=== PATIENT | male | born 1970 | race Caucasian/White ===

== ENCOUNTER 2024-07-16 07:45 | Inpatient (IN) ==
--- NOTE | 2024-07-16 08:08 | Emergency Department Note ---
Impression & Plan NSTEMI (non-ST elevated myocardial infarction), Stented coronary artery ED Provider Note CHIEF COMPLAINT: Chest pain HISTORY OF PRESENT ILLNESS: This 54-year-old male patient with history of coronary artery disease status post stent 2 years ago presents to the emergency department with complaints of substernal chest pressure that began at approximately 630 this morning. He complains of some numbness in the left arm. He denies any recent fever, cough or shortness of breath. He states this happened approximately 5 weeks ago and he did not seek any medical attention, it lasted approximately 30 minutes. He called the ambulance this morning and was given an additional 3 baby aspirin. Patient states he does take aspirin, Plavix and atorvastatin daily. He resides in [place] and that is where his medical care was performed. Patient states he had a 4-hour flight to get to [place] [employer] for the football game. Patient states he was drinking alcohol last evening but denies any energy drinks or stimulants. REVIEW OF SYSTEMS: A review of systems was performed with positives and pertinent negatives listed in the history of present illness. 10 systems were reviewed and are otherwise negative. ALLERGIES: see below MEDICATIONS: see below PMH: see below SOCIAL HISTORY: see below DDx: Acute coronary syndrome, PE, pneumonia, congestive heart failure, cardiac arrhythmia, GERD among others. PHYSICAL EXAM: Vital signs reviewed. General: Well-appearing 54-year-old male, in no significant distress. HEENT: No scleral icterus, PERRLA, neck supple. Moist mucous membranes Cardiovascular: Regular rate and rhythm, no extra sounds. Pulmonary: Clear to auscultation bilaterally, normal work of breathing. Abdomen: Soft, nontender, nondistended, positive bowel sounds. Musculoskeletal: Atraumatic, no peripheral edema. Neurologic: Patient awake alert and oriented x 3, speech is clear Skin: Warm, dry, no rash EMERGENCY DEPARTMENT COURSE/MDM: This patient was evaluated and appeared to be in no significant distress. IV access was obtained and laboratory work was drawn. The patient was placed on the telemetry monitor noted to be in a normal sinus rhythm. EKG reveals no evidence of acute ischemia. The patient did receive aspirin prior to arrival. Patient's initial high-sensitivity troponin was 7.2 with 2 hr repeat trending upward at 31.2. I explained my findings to the patient and recommendations for admission. Consult was placed with [place] [facility] [place]. Patient then stated that he did not want to stay and would like to be discharged. I explained my very strong recommendation that he stay in the hospital given his history of coronary disease with stent and rising troponin. He agreed to a third high-sensitivity troponin, which was 74.7. Patient finally agreed to admission plan IV heparin drip was initiated. He has remained pain-free. Dr. Mena evaluated the patient for admission. MONITORING: An order for cardiac monitoring was placed and the patient is noted to be in a sinus tachycardia at 107 beats per minute. RADIOLOGY: Chest x-ray to my interpretation reveals no evidence of focal lung consolidation or failure EKG: To my interpretation reveals a sinus tachycardia at 104 bpm, normal ST segments. QTc of 431. No PVC, no PAC. DISPOSITION: Admission Past Med/Surg History Problem List (Updated 07/17/24 @ 17:35 by Darline Barraza MD) History of snoring Bradycardia Hypercholesterolemia NSTEMI (non-ST elevated myocardial infarction) (Acute) Stented coronary artery (Acute) Coronary artery disease Social History Smoking Status: Never smoker Hx Alcohol Use: Yes Alcohol type: beer Hx Substance Use: No Preferred Language: Kinyarwanda Communication Ability: Effective Disaster Director Required: No Beliefs That Will Affect Care: None Current Living Situation: Spouse Feels Safe at Home: Yes Safety Concerns: Feels Safe At This Time Allergies Allergies Allergy/AdvReac Type Severity Reaction Status Date / Time No Known Allergies Allergy Unverified 07/16/24 07:58 Home Meds Home Medications Medication Instructions Recorded Confirmed aspirin 81 mg chewable tablet 81 mg PO DAILY 07/16/24 07/16/24 atorvastatin 10 mg tablet (Lipitor) 10 mg PO DAILY 07/16/24 07/16/24 clopidogrel 75 mg tablet (Plavix) 75 mg PO DAILY 07/16/24 07/16/24 Results & Data (ED) Vital Signs Vital Signs - 24 hr 07/16/24 07:49 07/16/24 07:49 07/16/24 08:03 Temperature 36.7 C Temperature Source Oral Pulse Rate 103 H 107 H 106 H Pulse Rate from SpO2 Sensor 106 H Pulse Rhythm Regular Regular Pulse Strength Normal Respiratory Rate 16 16 16 Respiratory Effort / Characteristics Non-Labored Spontaneous Respiratory Depth Normal Respiratory Pattern Regular Blood Pressure 153/96 H 150/84 H Blood Pressure Mean 115 106 Blood Pressure Position Sitting Pulse Oximetry 98 98 98 Oxygen Delivery Method Room Air Room Air Room Air Sepsis Recent Fever Within 48 Hours Yes Sepsis New/Unexplained Change in Mental Status N/A Sepsis Action Taken by Nursing No Action Required 07/16/24 08:13 07/16/24 08:16 07/16/24 08:33 Temperature Temperature Source Pulse Rate 110 H 100 H 88 Pulse Rate from SpO2 Sensor Pulse Rhythm Regular Pulse Strength Respiratory Rate 16 14 Respiratory Effort / Characteristics Respiratory Depth Respiratory Pattern Blood Pressure 144/81 H Blood Pressure Mean 102 Blood Pressure Position Pulse Oximetry 98 98 Oxygen Delivery Method Room Air Room Air Sepsis Recent Fever Within 48 Hours Sepsis New/Unexplained Change in Mental Status Sepsis Action Taken by Nursing 07/16/24 09:03 07/16/24 09:30 07/16/24 10:06 Temperature Temperature Source Pulse Rate 96 H 90 89 Pulse Rate from SpO2 Sensor Pulse Rhythm Pulse Strength Respiratory Rate 18 16 14 Respiratory Effort / Characteristics Respiratory Depth Respiratory Pattern Blood Pressure 164/80 H 142/76 H 121/83 Blood Pressure Mean 108 98 95 Blood Pressure Position Pulse Oximetry 99 98 99 Oxygen Delivery Method Room Air Room Air Room Air Sepsis Recent Fever Within 48 Hours Sepsis New/Unexplained Change in Mental Status Sepsis Action Taken by Skilled Nursing Medications Current Medication List: was personally reviewed by me Laboratory Data Attestation: I reviewed the patient's lab results. 07/17/24 03:21 07/17/24 03:21 Lab Results 07/16/24 07/16/24 07/16/24 Range/Units 08:09 10:13 12:13 WBC 5.33 (4.8-10.8) K/ul RBC 4.88 (4.70-6.10) M/uL Hgb 14.7 (14.0-18.0) g/dl Hct 41.8 L (42.0-52.0) % MCV 85.7 (80.0-100.0) fL MCH 30.1 (25.0-34.0) pg MCHC 35.2 (32.0-36.0) g/dL RDW Std Deviation 39.4 (36.4-46.3) fL RDW Coeff of Júnior 12.6 (11.5-14.5) % Plt Count 222 (130-400) K/uL MPV 11.1 (9.4-12.4) fL Immature Gran % (Auto) 0.4 % Neut % (Auto) 63.8 % Lymph % (Auto) 23.8 % [place] % (Auto) 9.2 % Eos % (Auto) 2.4 % Baso % (Auto) 0.4 % Neut # (Auto) 3.40 (1.40-6.50) K/uL Lymph # (Auto) 1.27 (1.20-3.40) K/uL [place] # (Auto) 0.49 (0.11-0.59) K/uL Eos # (Auto) 0.13 (0.00-0.50) K/uL Baso # (Auto) 0.02 (0.00-0.20) K/uL Immature Gran # (Auto) 0.02 (0.01-0.20) K/uL PT 9.6 (9.0-12.0) Seconds INR 0.9 (0.9-1.1) APTT 25 (21-31) Seconds PTT Ratio 0.9 D-Dimer 410 (0-500) ug/L FEU Sodium 140 (136-145) mmol/L Potassium 4.3 (3.5-5.1) mmol/L Chloride 109 H (98-107) mmol/L Carbon Dioxide 25 (21-32) mmol/L Anion Gap 6 (3-11) BUN 18 (6-23) mg/dl Creatinine 0.78 (0.6-1.4) mg/dl Est Cr Clr Drug Dosing 128.1 ml/min eGFR 107.30 BUN/Creatinine Ratio 23.1 H (10-20) Glucose 114 H (70-99(Fasting)) mg/dl Calcium 9.5 (8.6-10.3) mg/dl Magnesium 2.1 (1.7-2.4) mg/dl Total Bilirubin 0.3 (0.2-1.0) mg/dl AST 30 (13-39) U/L ALT 39 (7-52) U/L Alkaline Phosphatase 65 (34-104) U/L Troponin I High Sens 7.2 31.2 H D 74.7 H* D (0-20) pg/ml Total Protein 7.4 (6.0-8.3) gm/dl Albumin 4.5 (3.4-5.0) gm/dl Globulin 2.9 (2.5-4.0) gm/dl Albumin/Globulin Ratio 1.6 (0.9-2) Lipase 79 (11-82) U/L Administered Medications Aspirin (Aspirin 81 Mg Ectab) 81 mg PO QAM [facility] Stop: 08/16/24 08:59 Last Admin: 07/17/24 08:40 Dose: 81 mg Documented By: MANFRED Atorvastatin Calcium (Atorvastatin 40 Mg Tab) 40 mg PO QAM [facility] Stop: 08/16/24 08:59 Last Admin: 07/17/24 08:41 Dose: 40 mg Documented By: MANFRED Clopidogrel Bisulfate (Clopidogrel Bisulfate 75 Mg Tab) 75 mg PO DAILY [facility] Stop: 08/16/24 08:59 Last Admin: 07/17/24 08:41 Dose: 75 mg Documented By: MANFRED Heparin Sodium/Dextrose (Heparin Sodium/Dextrose) 25,000 units in 500 mls @ 22 mls/hr IV .[id number] [facility]; Protocol Stop: 08/15/24 13:44 Last Admin: 07/17/24 10:11 Dose: 1,100 units/hr, 22 mls/hr Documented By: MANFRED Co-signed By: CHRISTIANO Titration: 07/17/24 10:11 Dose: Infused Documented By: MANFRED Co-signed By: CHRISTIANO Titration: 07/17/24 04:13 Dose: 1,100 units/hr, 22 mls/hr Documented By: RODOLFO Co-signed By: DAYSI Titration: 07/16/24 20:49 Dose: 1,100 units/hr, 22 mls/hr Documented By: RODOLFO Co-signed By: DAYSI Titration: 07/16/24 19:05 Dose: 1,000 units/hr, 20 mls/hr Documented By: MANFRED Co-signed By: RODOLFO Admin: 07/16/24 13:33 Dose: 1,000 units/hr, 20 mls/hr Documented By: Co-signed By: MARLENE Metoprolol Tartrate (Metoprolol Tartrate 25 Mg Tab) 25 mg PO BID [facility] Stop: 08/15/24 20:59 Last Admin: 07/17/24 12:27 Dose: Not Given Documented By: Admin: 07/17/24 08:03 Dose: Not Given Documented By: Admin: 07/16/24 21:18 Dose: 25 mg Documented By: RODOLFO Discontinued Medications Aspirin (Aspirin Chew 324 Mg) 324 mg PO NOW STA Stop: 07/16/24 07:51 Last Admin: 07/16/24 08:15 Dose: Not Given Documented By: WOODY Heparin Sodium (Porcine) (Heparin Sod (Porcine) 1000 Unit/Ml) 4,000 units IV NOW ONE Stop: 07/16/24 13:31 Last Admin: 07/16/24 13:26 Dose: 4,000 units Documented By: Co-signed By: MARLENE Imaging Data Radiologist's Impression: Chest X-Ray 07/16/24 07:50 XR chest 1V portable HISTORY: 54 years-old Male Chest pain, nonspecific COMPARISON: None TECHNIQUE: AP view of the chest FINDINGS: Heart size is normal. No pneumothorax, pleural effusion or airspace consolidation. Bones appear grossly intact. IMPRESSION: No acute process. ACT 112: Negative or not required by law. The above report was generated using voice recognition software. It may contain grammatical, syntax or spelling errors. Electronically signed by: Cornell Rick M.D. 07/16/2024 8:42 AM Discharge Plan Visit Data Chief Complaint: Chest Pain Stated Complaint: Chest Pain ED Provider: Darline Barraza Discharge Problem: NSTEMI (non-ST elevated myocardial infarction), Stented coronary artery Patient Disposition: Admitted As Inpatient Discharge Instructions Interventions: ED Discharge Assessment Last Done: 07/16/24 13:49
[2024-07-16] MEDS: ASPIRIN CHEW 324 MG PO STA (08:15)
[2024-07-16 08:35] LABS: Basophils # (auto) 0.02 K/uL (0.00-0.20); Basophils % (auto) 0.4 %; Eosinophils # (auto) 0.13 K/uL (0.00-0.50); Eosinophils % (auto) 2.4 %; Hematocrit (blood only) 41.8 % (42.0-52.0); Hemoglobin 14.7 g/dl (14.0-18.0); Immature Granulocytes # (auto) 0.02 K/uL (0.01-0.20); Immature Granulocytes % (auto) 0.4 %; Lymphocytes # (auto) 1.27 K/uL (1.20-3.40); Lymphocytes % (auto) 23.8 %; Mean Corpuscular Hemoglobin 30.1 pg (25.0-34.0); Mean Corpuscular Hgb Conc 35.2 g/dL (32.0-36.0); Mean Corpuscular Volume 85.7 fL (80.0-100.0); Mean Platelet Volume 11.1 fL (9.4-12.4); Monocytes # (auto) 0.49 K/uL (0.11-0.59); Monocytes % (auto) 9.2 %; Neutrophils % (auto) 63.8 %; Platelet Count 222 K/uL (130-400); RDW Coefficient of Variation 12.6 % (11.5-14.5); RDW Standard Deviation 39.4 fL (36.4-46.3); Red Blood Count 4.88 M/uL (4.70-6.10); White Blood Count 5.33 K/ul (4.8-10.8)
[2024-07-16 08:40] LABS: Albumin Globulin Ratio 1.6 (0.9-2); Albumin Level 4.5 gm/dl (3.4-5.0); BUN Creatinine Ratio 23.1 (10-20); Bilirubin,Total 0.3 mg/dl (0.2-1.0); Calcium 9.5 mg/dl (8.6-10.3); Creatinine Clr Calc Pharmacy 128.1 ml/min; Globulin 2.9 gm/dl (2.5-4.0); Potassium 4.3 mmol/L (3.5-5.1); Total Protein 7.4 gm/dl (6.0-8.3)
--- NOTE | 2024-07-16 08:44 | XRay Report ---
XR chest 1V portable HISTORY: 54 years-old Male Chest pain, nonspecific COMPARISON: None TECHNIQUE: AP view of the chest FINDINGS: Heart size is normal. No pneumothorax, pleural effusion or airspace consolidation. Bones appear gross ly intact. IMPRESSION: No acute process. ACT 112: Negative or not required by law. The above report was generated using voice recognition software. It may contain grammatical, syntax o r spelling errors. Electronically signed by: Cornell Rick M.D. 07/16/2024 8:42 AM
[2024-07-16 08:46] LABS: Troponin I High Sensitivity 7.2 pg/ml (0-20)
[2024-07-16 08:49] LABS: D Dimer 410 ug/L FEU (0-500)
[2024-07-16 12:56] LABS: Troponin I High Sensitivity 74.7 pg/ml (0-20)
[2024-07-16] MEDS ORDERED: Heparin IV Adult Wt-Based Low-Dose w/ INITIAL Bolus Protocol IV STA (12:58)
[2024-07-16 12:59] LABS: INR 0.9 (0.9-1.1); Partial Thromboplastin Ratio 0.9; Partial Thromboplastin Time 25 Seconds (21-31); Prothrombin Time 9.6 Seconds (9.0-12.0)
--- NOTE | 2024-07-16 13:01 | History & Physical Report ---
Date of Service July 16, 2024 Assessment & Plan (1) NSTEMI (non-ST elevated myocardial infarction): Plan: Chest pain started the morning of arrival around 0630; 2 previous episodes occurred before with previous and most recent episode lasting 15-20 minutes in duration. Initial episodes occurred after exercise, most recent episode occurred during sleep and caused him to wake. No radiation of pressure, but did have RUE numbness/tingling. Currently chest pain/pressure free. On ASA, plavix, and atorvastatin. - Admit PCU - EKG sinus tachycardia (104 bpm) - Troponin 7.2-> 31.2-> 74.7 - CBC WNL; CMP chloride 109, BUN 23.1; D-dimer 410; PT/INR 9.6/0.9, aPTT 25, PTT ratio 0.9; Lipids pending, A1c pending, Mg pending - Echo: Essentially normal study; EF 55-60%; mild MR, trace TR - ASA chew 325 mg given; continue dose of ASA 81mg po daily - SL NTG 0.4mg prn chest pain - Heparin started in ED; continue - On atorvastatin 10 mg daily; increase to 40mg daily for high intensity statin - Start Metoprolol tartrate 25 mg BID - Continue Plavix 75mg daily - IVETH risk score 2 - Cardiology consulted; consider catheterization - NPO at midnight; heart healthy otherwise Appreciate cardiology input/recs (2) Coronary artery disease: Plan: H/o, per patient - Notes he had stents placed and follows at a hospital in [place] with credit union examiner - On Plavix, ASA, and atorvastatin as outpatient Plan Dispo: Admit VTE prophylaxis: Heparin for #1 Code: Full Admission and Anticipated Discharge Date Admission Date: 07/16/2024 History of Present Illness Chief Complaint: Chest pain Primary Care Provider: NO PCP Patient is a 54-year-old male presenting to ED via EMS after having an onset of chest discomfort/pressure this a.m. around 0630. Upon EMS arrival, patient noted to be tachycardic and hypertensive; ovided with 3 aspirin.ED course: CBC WNL with exception of hematocrit 41.8%; D-dimer 410; CMP chloride 109, BUN 23.1, glucose 114; initial troponin 7.2 with repeat 31.2, pending 3rd of series; CXR- no acute process; EKG without ischemic changes. Provided with aspirin 324 mg in ED. Patient is a 54-year-old male with PMHx CAD, who underwent cardiac cathet erization approximate 3 months ago at a hospital in [place], now presenting for chest pressure. Patient states that the chest pressure started at approximately 0630 the day of arrival, awaking him from his sleep. Noted that the pressure was substernal, without radiation. He did have numbness/tingling down his left arm. Reports mild shortness of breath as well, but no coughing, or syncopal events. Overall feels his body is weak at the time of the episode. Reports episode lasted approximately 20 minutes and with complete resolution . States that this has happened on 2 other occasions within the past 3 months. These occurred minutes after completing a workout. It was a sudden onset substernal discomfort, resulting in mild shortness of breath and lasting 15 to 20 minutes per episode. After the first episode, he did follow-up with a credit union examiner and a cardiac catheterization was completed; patient is trying to locate these records. Patient resides in [place]; did fly into [place] to visit his son. Denies calf pain/tenderness or swelling. Additionally denies recent fever/chills, palpitations, abdominal pain, N/V/D/C, or recent illness. Currently on aspirin, Plavix, and atorvastatin. Takes OTC multivitamins. Denies illicit drug use, but did have alcohol last evening. Please see Dr. Mena's attestation for adjustments/additions to treatment plan. Allergies Allergy/AdvReac Type Severity Reaction Status Date / Time No Known Allergies Allergy Unverified 07/16/24 07:58 Home Medications Medication Instructions Recorded Confirmed Type aspirin 81 mg chewable tablet 81 mg PO DAILY 07/16/24 07/16/24 History atorvastatin 10 mg tablet (Lipitor) 10 mg PO DAILY 07/16/24 07/16/24 History clopidogrel 75 mg tablet (Plavix) 75 mg PO DAILY 07/16/24 07/16/24 History Past Med/Surg History Problem List (Updated 07/16/24 @ 13:06 by Tamara Polanco PA-C) NSTEMI (non-ST elevated myocardial infarction) Stented coronary artery Coronary artery disease Social History Smoking Status: Never smoker Hx Alcohol Use: Yes Alcohol type: beer Hx Substance Use: No Preferred Language: Congolese Communication Ability: Effective Accounting Administrator Required: No Beliefs That Will Affect Care: None Current Living Situation: Spouse Feels Safe at Home: Yes Safety Concerns: Feels Safe At This Time Review of Systems Review of Systems: All systems reviewed & are unremarkable except as noted in Subjective Physical Exam Physical Exam: General: No acute distress, well developed. Skin: Warm and dry, without rashes or lesions. No cyanosis or clubbing Head: Normocephalic, atraumatic Eyes: PERRL, conjunctivae clear, sclera non-icteric ENT: External ear and ear canal without swelling; nose atraumatic; good dentition Neck: Supple, no LAD; no JVD Cardio: RRR, no M/G/R, S1 and S2 normal Resp: Chest wall symmetric, normal respiratory effort; No respiratory distress, Lungs CTA in all lobes bilaterally, no wheezes, rales, or rhonchi Abdomen: Soft, symmetric, nontender; no distention; No masses or hepatosplenomegaly MSK: No deformities, full ROM throughout; sensation normal to UE/LE; pulses palpable and equal; no edema; no calf tenderness bilaterally Neuro: Awake, alert; Muscle strength 5/5 bilaterally in UE/LE; Sensation intact bilaterally; CN intact Psych: Appropriate mood and affect; good judgement and insight. Results & Data Results & Data Vital Signs (Past 12 Hours) Vital Signs Temp Pulse Resp BP Pulse Ox O2 Del Method 07/16/24 11:49 90 07/16/24 10:06 89 14 121/83 99 Room Air 07/16/24 09:30 90 16 142/76 H 98 Room Air 07/16/24 09:03 96 H 18 164/80 H 99 Room Air 07/16/24 08:33 88 14 144/81 H 98 Room Air 07/16/24 08:16 100 H 16 98 Room Air 07/16/24 08:13 110 H 07/16/24 08:03 106 H 16 150/84 H 98 Room Air 07/16/24 07:49 107 H 16 98 Room Air 07/16/24 07:49 36.7 C 103 H 16 153/96 H 98 Room Air Laboratory Results 07/16/24 07/16/24 07/16/24 12:13 10:13 08:09 WBC 5.33 RBC 4.88 Hgb 14.7 Hct 41.8 L MCV 85.7 MCH 30.1 MCHC 35.2 RDW Std Deviation 39.4 RDW Coeff of Júnior 12.6 Plt Count 222 MPV 11.1 Immature Gran % (Auto) 0.4 Neut % (Auto) 63.8 Lymph % (Auto) 23.8 [place] % (Auto) 9.2 Eos % (Auto) 2.4 Baso % (Auto) 0.4 Neut # (Auto) 3.40 Lymph # (Auto) 1.27 [place] # (Auto) 0.49 Eos # (Auto) 0.13 Baso # (Auto) 0.02 Immature Gran # (Auto) 0.02 D-Dimer 410 Sodium 140 Potassium 4.3 Chloride 109 H Carbon Dioxide 25 Anion Gap 6 BUN 18 Creatinine 0.78 Est Cr Clr Drug Dosing 128.1 eGFR 107.30 BUN/Creatinine Ratio 23.1 H Glucose 114 H Calcium 9.5 Total Bilirubin 0.3 AST 30 ALT 39 Alkaline Phosphatase 65 Troponin I High Sens 74.7 H* D 31.2 H D 7.2 Total Protein 7.4 Albumin 4.5 Globulin 2.9 Albumin/Globulin Ratio 1.6 Lipase 79 Diagnostic Findings Chest X-Ray 07/16/24 07:50 XR chest 1V portable HISTORY: 54 years-old Male Chest pain, nonspecific COMPARISON: None TECHNIQUE: AP view of the chest FINDINGS: Heart size is normal. No pneumothorax, pleural effusion or airspace consolidation. Bones appear grossly intact. IMPRESSION: No acute process. ACT 112: Negative or not required by law. The above report was generated using voice recognition software. It may contain grammatical, syntax or spelling errors. Electronically signed by: Cornell Rick M.D. 07/16/2024 8:42 AM ECG Additional Comments: Sinus tachycardia at 104 bpm UT 180, QRS 76, QT/QTc 328/431 Code Status & VTE Plan Code Status Full Supervising Physician Co-Signing Physician Notes I personally saw and examined the patient. I independently reviewed the labs, EKG, imaging, problem list, medication list, past medical history and family history. I verified all ambriz points and agree with Tamara Polanco PA-C with the following exceptions and/or additions: 54 year old male presents to the ER with chest pain. Currently chest pain free when seen in the ER. Known coronary artery disease with prior cardiac stents. Reportedly had cardiac catheterization just 4 months ago although unable to get results of this currently. O/E HS RRR, no murmurs, Chest CTAB, Abdo SNT A/P NSTEMI - aspirin, clopidogrel, metoprolol, atorvastatin, IV heparin, TTE, consult cardiology for consideration of cardiac catheterization PG Care Time/CCT Total # of Minutes Spent Total Time Spent with Patient: Total time spent is greater than 50% in coordination of care (as documented) at patient's floor/unit and/or counseling patient: Coding Level of Care Code 31168 INT INP/OBS CARE 2/55MIN Diagnoses NSTEMI (non-ST elevated myocardial infarction) I21.4 Coronary artery disease I25.10 Time Spent (min) 65
[2024-07-16] MEDS ORDERED: HEPARIN SOD (PORCINE) 1000 UNIT/ML IV ONE (13:14)
[2024-07-16] MEDS ORDERED: Heparin IV Adult Wt-Based Low-Dose w/ INITIAL Bolus Protocol IV SCH (13:15)
[2024-07-16] MEDS ORDERED: HEPARIN SODIUM/DEXTROSE 25,000 UNITS/500 ML BAG IV SCH (13:15)
--- NOTE | 2024-07-16 13:17 | XCELERA ---
[id number] \\[id number]
[2024-07-16] MEDS: HEPARIN SOD (PORCINE) 1000 UNIT/ML IV ONE (13:26)
[2024-07-16] MEDS: HEPARIN SODIUM/DEXTROSE 25,000 UNITS/500 ML BAG IV SCH (13:33)
[2024-07-16 13:47] LABS: Magnesium 2.1 mg/dl (1.7-2.4)
[2024-07-16] MEDS ORDERED: NITROGLYCERIN SL 0.4 MG/TAB TAB SL PRN (14:03)
--- NOTE | 2024-07-16 15:48 | Cardiology Consultation ---
Date of Consultation July 16, 2024 Assessment & Plan (1) NSTEMI (non-ST elevated myocardial infarction): (2) Stented coronary artery: (3) Coronary artery disease: (4) Hypercholesterolemia: Plan Will make arrangements for left heart catheterization on Thursday. Depending on the results of the cath further recommendations will follow. He also told me that his recent labs from home included an LDL cholesterol that was in the 80s. Given our new guidelines show an LDL cholesterol less than 50-60 for prevention of new disease I have recommended that we increase his dose of rosuvastatin to 20 mg. He will continue taking aspirin at this time. He tells me that he was on Plavix for about a year after his stent but that was discontinued. He has been faithfully taking aspirin. Thank you for allowing me to participate in the care of this patient. I look forward to participating in his care with you. History of Present Illness Reason for Consultation: Non-ST elevation [place] Attending Physician: Hill Mena MD History of Present Illness Mr. Denton is a very nice 54-year-old gentleman who is here in town from [place] where he flew into town yesterday to visit his son and was here for the football game. Unfortunately he started having significant chest discomfort and presented to the emergency room. He does have a history of prior coronary artery disease which was done in [place] approximately 2 years ago. I do not have any of his old records but he did have a picture on his phone of his prior cath and stent and it appears to be in the proximal LAD. His symptoms are similar to the prior ones that he noted. His cardiac enzymes are abnormal. EKG shows sinus tachycardia with nonspecific T wave flattening in the inferior leads. Because of his young age as well as the extended travel that he will require to get back home, I recommended that we do a left heart catheterization on him on Thursday to define his coronary anatomy. He is agreeable and I will make arrangements to have the cath done on Thursday with Dr. Robledo. Allergies Allergy/AdvReac Type Severity Reaction Status Date / Time No Known Allergies Allergy Unverified 07/16/24 07:58 Home Medications Medication Instructions Recorded Confirmed Type aspirin 81 mg chewable tablet 81 mg PO DAILY 07/16/24 07/16/24 History atorvastatin 10 mg tablet (Lipitor) 10 mg PO DAILY 07/16/24 07/16/24 History clopidogrel 75 mg tablet (Plavix) 75 mg PO DAILY 07/16/24 07/16/24 History Patient History Social History Smoking Status: Never smoker Hx Alcohol Use: Yes Alcohol type: beer Hx Substance Use: No Preferred Language: Maltese Communication Ability: Effective Tire Adjuster Required: No Beliefs That Will Affect Care: None Current Living Situation: Spouse Feels Safe at Home: Yes Safety Concerns: Feels Safe At This Time Review of Systems Review of Systems: All systems reviewed & are unremarkable except as noted in HPI & below Physical Exam Physical Exam: awake alert and oriented in no apparent distress he appears comfortable at this time Respiratory: Lungs are clear to auscultation bilaterally Cardiovascular: Heart is regular there are no murmurs rubs appreciated there is no edema Results & Data Vital Signs (Past 12 Hours) Vital Signs Temp Pulse Pulse Resp BP BP Pulse Ox 07/16/24 15:05 99 H 07/16/24 14:18 36.5 C 87 16 137/93 97 07/16/24 13:36 84 14 139/94 97 07/16/24 13:00 81 14 165/92 H 94 07/16/24 11:49 90 07/16/24 11:03 90 12 147/98 H 07/16/24 10:06 89 14 121/83 99 07/16/24 09:30 90 16 142/76 H 98 07/16/24 09:03 96 H 18 164/80 H 99 07/16/24 08:33 88 14 144/81 H 98 07/16/24 08:16 100 H 16 98 07/16/24 08:13 110 H 07/16/24 08:03 106 H 16 150/84 H 98 07/16/24 07:49 107 H 16 98 07/16/24 07:49 36.7 C 103 H 16 153/96 H 98 O2 Del Method 07/16/24 15:05 07/16/24 14:18 Room Air 07/16/24 13:36 07/16/24 13:00 07/16/24 11:49 07/16/24 11:03 07/16/24 10:06 Room Air 07/16/24 09:30 Room Air 07/16/24 09:03 Room Air 07/16/24 08:33 Room Air 07/16/24 08:16 Room Air 07/16/24 08:13 07/16/24 08:03 Room Air 07/16/24 07:49 Room Air 07/16/24 07:49 Room Air Laboratory Results Abnormal lab results 07/16/24 07/16/24 07/16/24 Range/Units 08:09 10:13 12:13 Hct 41.8 L (42.0-52.0) % Chloride 109 H (98-107) mmol/L BUN/Creatinine Ratio 23.1 H (10-20) Glucose 114 H (70-99(Fasting)) mg/dl Troponin I High Sens 31.2 H D 74.7 H* D (0-20) pg/ml 07/16/24 Range/Units 14:32 Hct (42.0-52.0) % Chloride (98-107) mmol/L BUN/Creatinine Ratio (10-20) Glucose (70-99(Fasting)) mg/dl Troponin I High Sens 105.5 H* D (0-20) pg/ml ECG Additional Comments: Sinus tachycardia nonspecific T wave changes in the inferior leads
--- NOTE | 2024-07-16 19:32 | Electrocardiogram Report ---
Test Reason : Blood Pressure : */* mmHG Vent. Rate : 104 BPM Atrial Rate : 104 BPM P-R Int : 180 ms QRS Dur : 76 ms QT Int : 328 ms P-R-T Axes : 54 10 1 degrees QTcB Int : 431 ms Sinus tachycardia Otherwise normal ECG No previous ECGs available Confirmed by Radha Bustillos (Vielka) on 07/16/2024 7:31:28 PM Referred By: REFERRED SELF Confirmed By: Radha Bustillos
[2024-07-16 20:29] LABS: ANTI-Xa, UFH(UnfractionatedHep 0.29 IU/ml (0.3-0.7)
[2024-07-16] MEDS: METOPROLOL TARTRATE 25 MG TAB PO SCH (21:18)
[2024-07-17 03:41] LABS: Hematocrit (blood only) 40.9 % (42.0-52.0); Hemoglobin 14.1 g/dl (14.0-18.0); Mean Corpuscular Hemoglobin 29.9 pg (25.0-34.0); Mean Corpuscular Hgb Conc 34.5 g/dL (32.0-36.0); Mean Corpuscular Volume 86.8 fL (80.0-100.0); Mean Platelet Volume 10.6 fL (9.4-12.4); Platelet Count 197 K/uL (130-400); RDW Coefficient of Variation 12.5 % (11.5-14.5); RDW Standard Deviation 39.8 fL (36.4-46.3); Red Blood Count 4.71 M/uL (4.70-6.10); White Blood Count 5.33 K/ul (4.8-10.8)
[2024-07-17 03:58] LABS: BUN Creatinine Ratio 18.7 (10-20); Calcium 9.3 mg/dl (8.6-10.3); Chol HDL Ratio 3.5 (0-5); Creatinine Clr Calc Pharmacy 109.8 ml/min; Potassium 4.3 mmol/L (3.5-5.1)
[2024-07-17 04:15] LABS: Troponin I High Sensitivity 57.3 pg/ml (0-20)
[2024-07-17 07:19] LABS: Estimated Average Glucose 105 mg/dl; Hemoglobin A1C 5.3 % (4.5-5.6)
[2024-07-17] MEDS: ASPIRIN 81 MG ECTAB PO SCH (08:40)
[2024-07-17] MEDS: CLOPIDOGREL BISULFATE 75 MG TAB PO SCH (08:41)
[2024-07-17] MEDS: ATORVASTATIN 40 MG TAB PO SCH (08:41)
[2024-07-17] MEDS ORDERED: ASPIRIN 81 MG CHEW PO SCH (09:00)
--- NOTE | 2024-07-17 12:54 | Cardiology Progress Note ---
Date of Service July 17, 2024 Assessment & Plan (1) NSTEMI (non-ST elevated myocardial infarction): (2) Stented coronary artery: (3) Coronary artery disease: (4) Hypercholesterolemia: (5) Bradycardia: (6) History of snoring: Plan Will make arrangements for left heart catheterization on Thursday with Dr. Robledo. Depending on the results of the cath further recommendations will follow. He also told me that his recent labs from home included an LDL cholesterol that was in the 80s. Given our new guidelines show an LDL cholesterol less than 50-60 for prevention of new disease I have recommended that we increase his dose of rosuvastatin to 20 mg. He will continue taking aspirin at this time as well as Plavix and is currently on IV heparin. He tells me that he was on Plavix for about a year after his stent but that was discontinued. He has been faithfully taking aspirin. I put his beta-buster on hold given the relative bradycardia and given that he has not had any additional chest pain. I am going to see if respiratory can do a continuous pulse ox which will record his saturations to see if we can put together oxygen saturations with when he gets bradycardic. When he gets back home to [place] he will likely need an at home sleep study to further evaluate this. He is very nervous and anxious to be able to get back home. He has a flight Thursday p.m. hopefully if we can get his catheterization done early enough tomorrow we will not have to interrupt his travel plans. Thank you for allowing me to participate in the care of this patient. I look forward to participating in his care with you. Admission and Anticipated Discharge Date Admission Date: July 16, 2024 Subjective Mr. Lee was seen today in cardiovascular follow-up. He has had no additional chest pain through the night. His cardiac enzymes are coming back to normal. Last evening on telemetry his heart rate dropped down into the 20s and 30s. I question him regarding sleep apnea and he is noted to be a snorer. We did not have correlation with pulse ox at the same time as his heart rate dropped down. He was able to pull up on his computer his most recent CTA which was done in [place] approximately 1 year ago. His coronary anatomy appears okay to my eye however it is difficult to see within his LAD stent to see if it is patent. His prior catheterization was from 2021 which showed a proximal to mid LAD stent. On his EKG is difficult to isolate an area of ischemia or infarct. His echo shows overall normal LV systolic function without wall motion abnormalities. Review of Systems Review of Systems: All systems reviewed & are unremarkable except as noted in HPI & below Physical Exam Physical Exam: awake alert and oriented in no apparent distress he appears comfortable at this time Respiratory: Clear to auscultation bilaterally Cardiovascular: Heart regular no new murmurs noted Results & Data Vital Signs (Past 12 Hours) Vital Signs Temp Pulse Pulse Resp BP Pulse Ox O2 Del Method 07/17/24 10:48 37 C 84 18 139/91 96 Room Air 07/17/24 07:48 36.7 C 74 18 115/72 94 Room Air 07/17/24 07:15 60 07/17/24 02:58 37.2 C 61 17 115/72 96 Room Air Laboratory Results Abnormal lab results 07/16/24 07/16/24 07/17/24 Range/Units 14:32 19:50 03:21 Hct 40.9 L (42.0-52.0) % Heparin Anti-Xa, Unfract 0.29 L (0.3-0.7) IU/ml Glucose 108 H (70-99(Fasting)) mg/dl Troponin I High Sens 105.5 H* D 100.7 H* 57.3 H* D (0-20) pg/ml Cholesterol 214 H (0-200) mg/dl Medications Administered Current Inpatient Medications Aspirin (Aspirin 81 Mg Ectab) 81 mg PO [facility] Stop: 08/16/24 08:59 Last Admin: 07/17/24 08:40 Dose: 81 mg Atorvastatin Calcium (Atorvastatin 40 Mg Tab) 40 mg PO QAM [facility] Stop: 08/16/24 08:59 Last Admin: 07/17/24 08:41 Dose: 40 mg Clopidogrel Bisulfate (Clopidogrel Bisulfate 75 Mg Tab) 75 mg PO DAILY [facility] Stop: 08/16/24 08:59 Last Admin: 07/17/24 08:41 Dose: 75 mg Heparin Sodium/Dextrose (Heparin Sodium/Dextrose) 25,000 units in 500 mls @ 22 mls/hr IV .[id number] [facility]; Protocol Stop: 08/15/24 13:44 Last Admin: 07/17/24 10:11 Dose: 1,100 units/hr, 22 mls/hr Metoprolol Tartrate (Metoprolol Tartrate 25 Mg Tab) 25 mg PO BID [facility] Stop: 08/15/24 20:59 Last Admin: 07/17/24 12:27 Dose: Not Given Nitroglycerin (Nitroglycerin Sl 0.4 Mg/Tab Tab) 0.4 mg SL Q5M PRN PRN Reason: Chest Pain ECG Additional Comments: Repeat EKG from this morning shows normal sinus rhythm at 74 there are T wave inversions in the inferior leads.
--- NOTE | 2024-07-17 14:44 | Hospitalist Progress Note ---
Date of Service July 17, 2024 Assessment & Plan (1) NSTEMI (non-ST elevated myocardial infarction): Plan: Chest pain started the morning of arrival around 0630; 2 previous episodes occurred before with previous and most recent episode lasting 15-20 minutes in duration. Initial episodes occurred after exercise, most recent episode occurred during sleep and caused him to wake. No radiation of pressure, but did have RUE numbness/tingling. Currently chest pain/pressure free. On ASA, plavix, and atorvastatin. - Admit PCU - EKG sinus tachycardia (104 bpm) - Troponin leaked at 105 - CBC WNL; CMP chloride 109, BUN 23.1; D-dimer 410; PT/INR 9.6/0.9, aPTT 25, PTT ratio 0.9; Lipids pending, A1c pending, Mg pending - Echo: Essentially normal study; EF 55-60%; mild MR, trace TR -Countinue DAPT -continue metoprolol 25 mg PO BID. -continue high intensity statin - Cardiology consulted; consider catheterization - NPO at midnight; heart healthy otherwise Appreciate cardiology input/recs (2) Coronary artery disease: Plan: H/o, per patient - Notes he had stents placed and follows at a hospital in [place] with general adjuster - On Plavix, ASA, and atorvastatin as outpatient Plan Dispo: Admit VTE prophylaxis: Heparin for #1 Code: Full Admission and Anticipated Discharge Date Admission Date: July 16, 2024 Subjective Patient reports feeling well. Review of Systems Review of Systems: All systems reviewed & are unremarkable except as noted in HPI & below Physical Exam Physical Exam: General: Patient sitting upright using his computer. Chest: not using accessory muscles to breath Lung: CTA b/l Heart: RRR, NL S1, S2 Abd: soft, NT, ND Results & Data Results & Data Vital Signs (Past 12 Hours) Vital Signs Temp Pulse Pulse Resp BP Pulse Ox O2 Del Method 07/17/24 13:35 83 07/17/24 10:48 37 C 84 18 139/91 96 Room Air 07/17/24 07:48 36.7 C 74 18 115/72 94 Room Air 07/17/24 07:15 60 07/17/24 02:58 37.2 C 61 17 115/72 96 Room Air PG Care Time/CCT Total # of Minutes Spent Total Time Spent with Patient: Total time spent is greater than 50% in coordination of care (as documented) at patient's floor/unit and/or counseling patient: Coding Level of Care Code 56922 SUB INP/OBS CARE 235MIN Diagnoses NSTEMI (non-ST elevated myocardial infarction) I21.4 Coronary artery disease I25.10
--- NOTE | 2024-07-17 17:39 | Electrocardiogram Report ---
Test Reason : Blood Pressure : */* mmHG Vent. Rate : 74 BPM Atrial Rate : 74 BPM P-R Int : 158 ms QRS Dur : 76 ms QT Int : 372 ms P-R-T Axes : 23 5 6 degrees QTcB Int : 412 ms Normal sinus rhythm Normal ECG When compared with ECG of 16-Jul-2024 07:49, No significant change was found Confirmed by Radha Bustillos (Vielka) on 07/17/2024 5:38:57 PM Referred By: REFERRED SELF Confirmed By: Radha Bustillos
[2024-07-18 04:27] LABS: ANTI-Xa, UFH(UnfractionatedHep 0.43 IU/ml (0.3-0.7)
--- NOTE | 2024-07-18 08:18 | Pre Anesthesia Assessment ---
Date of Service July 18, 2024 Pre Sedation Assessment Vital Signs Temp Pulse Pulse Pulse Resp BP Pulse Ox 07/18/24 07:34 59 L 07/18/24 07:17 98.1 F 65 17 118/71 96 07/18/24 03:50 67 07/18/24 02:33 97.7 F 72 18 105/66 94 07/17/24 22:50 62 07/17/24 22:38 97.9 F 65 18 119/76 95 07/17/24 21:58 68 07/17/24 19:17 97.9 F 77 18 146/88 H 97 07/17/24 15:41 98.1 F 77 16 117/71 97 07/17/24 13:35 83 07/17/24 10:48 98.6 F 84 18 139/91 96 Pulse Ox O2 Del Method O2 Del Method 07/18/24 07:34 07/18/24 07:17 Room Air 07/18/24 03:50 94 Room Air 07/18/24 02:33 Room Air 07/17/24 22:50 94 Room Air 07/17/24 22:38 Room Air 07/17/24 21:58 07/17/24 19:17 Room Air 07/17/24 15:41 Room Air 07/17/24 13:35 07/17/24 10:48 Room Air Cardiovascular + regular rate Respiratory + respiratory effort normal Pre-Sedation Airway Assessment Smoking Status: Never smoker Hx Sleep Apnea: No Hx Difficult Intubation: No Short, Thick Neck: No Thyromental Distance: < 3.5 Finger Breadths Oral Cavity: + WNL Mallampati Class: III ASA: ASA3 Procedure Planning Contraindications for Sedation: none Current Medications Reviewed: Yes Notes The planned sedation has been discussed with the patient. Informed Consent was obtained. I have identified the patient, determined the appropriateness of sedation and have assessed the patient immediately prior to the procedure. All medicine(s) and interventions are by my order.
--- NOTE | 2024-07-18 08:34 | Cardiology Progress Note ---
Date of Service July 18, 2024 Assessment & Plan (1) NSTEMI (non-ST elevated myocardial infarction): (2) Stented coronary artery: Plan: hx LAD stent 2021 had CTA coronaries in 2022 (3) Coronary artery disease: (4) Hypercholesterolemia: (5) Bradycardia: (6) History of snoring: Plan Left heart catheterization on Thursday with Dr. Robledo. Depending on the results of the cath further recommendations will follow. He also told me that his recent labs from home included an LDL cholesterol that was in the 80s. Given our new guidelines show an LDL cholesterol less than 50-60 for prevention of new disease I have recommended that we increase his dose of rosuvastatin to 20 mg. He will continue taking aspirin at this time as well as Plavix and is currently on IV heparin. He tells me that he was on Plavix for about a year after his stent but that was discontinued. He has been faithfully taking aspirin. the pulse ox over night dropped to 90% at the lowest but did have occasional sher in the 40s noted. Would rec that he get AHSS once home through PCP. Statin dose increased-will need lipids in 3 months along with LFTs. Thank you for allowing me to participate in the care of this patient. I look forward to participating in his care with you. Admission and Anticipated Discharge Date Admission Date: July 16, 2024 Subjective Patient reports feeling well. Review of Systems Review of Systems: All systems reviewed & are unremarkable except as noted in HPI & below Physical Exam Physical Exam: no significant change Respiratory: CTA Cardiovascular: regular no changes Results & Data Vital Signs (Past 12 Hours) Vital Signs Temp Pulse Pulse Pulse Resp BP Pulse Ox 07/18/24 07:34 59 L 07/18/24 07:17 36.7 C 65 17 118/71 96 07/18/24 03:50 67 07/18/24 02:33 36.5 C 72 18 105/66 94 07/17/24 22:50 62 07/17/24 22:38 36.6 C 65 18 119/76 95 07/17/24 21:58 68 Pulse Ox O2 Del Method O2 Del Method 07/18/24 07:34 07/18/24 07:17 Room Air 07/18/24 03:50 94 Room Air 07/18/24 02:33 Room Air 07/17/24 22:50 94 Room Air 07/17/24 22:38 Room Air 07/17/24 21:58 Laboratory Results no new labs to report Cr. 0.9 Trop peak at 106 TC 214 [id number] Medications Administered Current Inpatient Medications Aspirin (Aspirin 81 Mg Ectab) 81 mg PO QAM [facility] Stop: 08/16/24 08:59 Last Admin: 07/18/24 08:08 Dose: 81 mg Clopidogrel Bisulfate (Clopidogrel Bisulfate 75 Mg Tab) 75 mg PO DAILY [facility] Stop: 08/16/24 08:59 Last Admin: 07/18/24 08:09 Dose: 75 mg Heparin Sodium/Dextrose (Heparin Sodium/Dextrose) 25,000 units in 500 mls @ 22 mls/hr IV .[id number] [facility]; Protocol Stop: 08/15/24 13:44 Last Titration: 07/18/24 08:35 Dose: 0 units/hr, 0 mls/hr Metoprolol Tartrate (Metoprolol Tartrate 25 Mg Tab) 25 mg PO BID [facility] Stop: 08/15/24 20:59 Last Admin: 07/18/24 08:09 Dose: 25 mg Nitroglycerin (Nitroglycerin Sl 0.4 Mg/Tab Tab) 0.4 mg SL Q5M PRN PRN Reason: Chest Pain Rosuvastatin Calcium (Rosuvastatin Calcium 20 Mg Tab) 20 mg PO QAM [facility] Stop: 08/17/24 08:59
[2024-07-18 08:39] VITALS: TEMP 97.9
[2024-07-18] MEDS: ROSUVASTATIN CALCIUM 20 MG TAB PO SCH (08:52)
[2024-07-18] MEDS: NITROGLYCERIN/D5W 100MCG/ML 20ML SYR ONE (09:08)
[2024-07-18] MEDS: niCARdipine HCL INJ 2.5 MG/ML 10 ML AMP ONE (09:08)
[2024-07-18] MEDS: OPTIRAY 350 ONE (10:02)
[2024-07-18] MEDS: HEPARIN (PORCINE) 1000 UNIT/ML 10 ML (CATH LAB USE ONLY) ONE (10:03)
[2024-07-18] MEDS: MIDAZOLAM HCL 1 MG/ML 2ML VIAL ONE (10:03)
[2024-07-18] MEDS: CLOPIDOGREL BISULFATE 300 MG TAB ONE (10:04)
[2024-07-18] MEDS: fentaNYL citrate PF 100 MCG/2 ML VIAL ONE (10:06)
--- NOTE | 2024-07-18 10:20 | Post Anesthesia Assessment ---
Date of Service July 18, 2024 Post Sedation Assessment Vital Signs Temp Pulse Pulse Pulse Resp BP Pulse Ox 07/18/24 08:34 97.9 F 79 18 130/76 98 07/18/24 07:34 59 L 07/18/24 07:17 98.1 F 65 17 118/71 96 07/18/24 03:50 67 07/18/24 02:33 97.7 F 72 18 105/66 94 07/17/24 22:50 62 07/17/24 22:38 97.9 F 65 18 119/76 95 07/17/24 21:58 68 07/17/24 19:17 97.9 F 77 18 146/88 H 97 07/17/24 15:41 98.1 F 77 16 117/71 97 07/17/24 13:35 83 07/17/24 10:48 98.6 F 84 18 139/91 96 Pulse Ox O2 Del Method O2 Del Method 07/18/24 08:34 Room Air 07/18/24 07:34 07/18/24 07:17 Room Air 07/18/24 03:50 94 Room Air 07/18/24 02:33 Room Air 07/17/24 22:50 94 Room Air 07/17/24 22:38 Room Air 07/17/24 21:58 07/17/24 19:17 Room Air 07/17/24 15:41 Room Air 07/17/24 13:35 07/17/24 10:48 Room Air Recovery Score Activity: Moves 4 extremities Respiration: Deep Breath/Cough Circulation: +/-20% PreAnes Value Consciousness: Fully Awake Oxygen Saturation: O2 needed for >90% Discharge Sedation Level of Care: Fast Track Phase II Post Sedation Plan On clinical assessment, the patient appears to have tolerated the sedation without complications. Patient is recovering as anticipated. Patient will continue to be monitored by nursing and may be discharged when sedation discharge criteria are met per below protocol. Upon Completions of procedure up to 15 minutes continue every 5 minute vital signs and the P.A.R. score; then discharge to a Phase I or Fast Track to Phase II per the following guidelines: * Discharge Patient to appropriate Phase II area if PAR is 8 or greater or return to pre- procedure baseline. The post - procedure orders will be as directed. * If PAR score is less than 8 or not return to pre-procedure baseline then patient will follow Phase I monitoring till PAR is reached for Phase II. The Phase I may be done in procedure room or may call to secure a Phase I area. * If naloxone or flumazenil are used for reversal, hold in Phase I for continued monitoring from when last reversal dose was given for a minimum of 60 minutes or longer pending the nurse and/or physician discretion of patient condition before discharge to Phase II. Please call the Sedation Physician to re-evaluate and complete post-note for discharge to Phase II area. Do NOT discharge from procedure sedation or Phase 1 until post- sedation evaluation note is complete by procedure /sedation MD Sedation Discharge Instructions to be given to the patient at discharge to home.
--- NOTE | 2024-07-18 10:28 | Cardiac Catheterization ---
[facility] Data: Help Desk Associate Cardiac Status Clinical evaluation leading to the procedure CAD Presenation: Non STEMI Anginal Classification: CCS IV Diagnostic Physicians Name: Boni Robledo MD Closure Device Recommendations: Medical Therapy and/or Counseling Cardiac Cath Procedure Full Procedure Date July 18, 2024 Pre-Procedure Diagnosis Pre-Procedure Diagnosis: Non STEMI and CAD AUC Score AUC Score: 8 Post-Procedure Diagnosis Post-Procedure Diagnosis: Severe CAD, Successful PCI and Normal Intracardiac Pressures Procedure(s) Performed Procedure(s) Performed: Coronary Angiography, Left Heart Cath, Drug Eluting Stent and IVUS Care Worker Boni Robledo MD Skid Adzer(s) Malvinibler Estimated Blood Loss Estimated Blood Loss: 15 Medication(s) Medication(s): Clopidogrel, Fentanyl, Heparin, Lidocaine 1%, Nicardipine, Nitroglycerin and Versed Summary of Findings Indication: NSTEMI. History of coronary artery disease post prior stent to proximal LAD 07/2022 Access: 6 Fr slender right radial artery Catheters: Todd, diagnostic JL 3.5, EBU 3.5 guide Findings: LM -normal caliber, no significant disease LAD -large vessel proximally, 20 to 30% ostial, mid vessel tapers with widely patent long stent without significant in-stent restenosis, remainder of mid to distal vessel without significant disease and wraps around apex. Jailed large second septal with 95+ percent ostial stenosis. Small D2 occluded, partially fills via left to left collaterals retrograde Circumflex -large caliber, gives off large high OM1 without significant disease. AV groove circumflex without significant disease. Small to medium caliber OM 3 with 80-90% proximal stenosis RCA -dominant, medium caliber, distal luminal irregularities. Small to medium caliber RPDA with 50-60% proximal stenosis. LVEDP -11 IVUS of LAD Left main cannulated with EBU 3.5 guide [place] blue wire placed into distal LAD Campos IVUS catheter placed to rightmid LAD Pullback revealed patent mid LAD stent, appears underexpanded in proximal aspect of stent but well apposed. Mild proximal disease including eccentric ostial LAD calcified mild disease. Left main without significant disease. -- PCI OM 3-- Antithrombotic therapy: Heparin, clopidogrel Procedure: Pre-procedure flow IVETH 3 [place] blue wire redirected from LAD into distal circumflex Claim Specialist 50 wire navigated across OM 3 stenosis into distal vessel OM 3 lesion predilated with 2.0 compliant balloon Dilated lesion stented with 2.25 x 18 mm Dagoberto NAS Stent post-dilated with 2.5 noncompliant balloon IC vasodilators administered for spasm Post procedure IVETH 3 flow, stent well expanded with minimal residual stenosis and no apparent cardiac complications. Arterial Closure: TR band Summary: 1. Multivessel coronary artery disease -80-90% proximal OM3 Patent LAD stent. Jailed large septal with 95+% ostial stenosis. Small D2 occluded fills partially via left to left collaterals. 50-60% proximal RPDA 2. Normal intracardiac filling pressure 3. Successful PCI of proximal OM3 with single drug-eluting stent ( 2.25 x 18 mm Dagoberto; postdilated with 2.5 NC). Recommendations: To PCU for continued monitoring Reloaded with clopidogrel 300 mg in Help Desk Associate Continue dual-antiplatelet therapy for at least 1 year Continue statin, and ASCVD risk factor modification Cardiac rehab at home Recommend medical management of residual CAD. Consider additional antianginal therapy for exertional symptoms. Hemodynamics Rest Ao:: 109/64/84 Final Ao: 107/69/90 LV: 111/11 Recommendations Recommendations: Medical Therapy and/or Counseling Specimens Specimens: None Radiation Exposure (mGy) 2874 Contrast (mls) 105 Anesthesia Moderate 2070-3783 Procedural Complication(s) None Disposition PCU I attest to the content of the Intraoperative Record and any orders documented therein. Any exceptions are noted below. [facility] Card Cath Procedure Codes Cardiac Catheterization Procedure 1: Cardiovascular Cath Procedures: 48270 Coronaries and LHC (+/-LV) Therapeutic Services & Ancillary Procedure 1: Cardiovascular Tx and Anc Procedures: 56722 IV Ultrasound (Coronary or Graft) Moderate Sedation Procedure 1: Sedation/Anesthesia: 26920 Mod Sedation by the same physician;Init15 Min Child Age 5 & Up Procedure 2: Sedation/Anesthesia: 68602 Mod Sedation by the same physician; Ea [id number] Minutes Stenting Procedure 1: Cardiovascular Stent Procedures: 62790 Perc transcatheter placement of intracoronary stent(s), with ang PG Care Time/CCT Total # of Minutes Spent Total Time Spent with Patient: Total time spent is greater than 50% in coordination of care (as documented) at patient's floor/unit and/or counseling patient:
[2024-07-18 10:47] VITALS: RESP 16; O2SAT 98
--- NOTE | 2024-07-18 15:05 | Electrocardiogram Report ---
Test Reason : Blood Pressure : */* mmHG Vent. Rate : 53 BPM Atrial Rate : 53 BPM P-R Int : 136 ms QRS Dur : 82 ms QT Int : 398 ms P-R-T Axes : 12 22 5 degrees QTcB Int : 373 ms Sinus bradycardia with sinus arrhythmia Otherwise normal ECG When compared with ECG of 17-Jul-2024 10:01, No significant change was found Confirmed by Vargas Cox ([id number]) on 07/18/2024 3:05:11 PM Referred By: REFERRED SELF Confirmed By: Vargas Cox
--- NOTE | 2024-07-18 15:12 | Electrocardiogram Report ---
Test Reason : Blood Pressure : */* mmHG Vent. Rate : 51 BPM Atrial Rate : 51 BPM P-R Int : 148 ms QRS Dur : 78 ms QT Int : 414 ms P-R-T Axes : -8 7 1 degrees QTcB Int : 381 ms Sinus bradycardia Otherwise normal ECG When compared with ECG of 18-Jul-2024 04:59, (unconfirmed) No significant change was found Confirmed by Vargas Cox ([id number]) on 07/18/2024 3:11:44 PM Referred By: REFERRED SELF Confirmed By: Vargas Cox
[2024-07-18 15:19] VITALS: PULSE 76
--- NOTE | 2024-07-18 15:29 | Discharge Summary ---
Discharge Summary Date of Service July 18, 2024 Principal Dx & Hospital Course #1 = Principal Diagnosis (1) NSTEMI (non-ST elevated myocardial infarction): Pt p/w chest pain started the morning of arrival around 0630; with 2 previous episodes occurring-most recent episode lasting 15-20 minutes in duration. Initial episodes occurred after exercise, most recent episode occurred during sleep and caused him to wake. No radiation of pressure, but did have RUE numbness/tingling.On ASA and atorvastatin prior to admission Has a h/o LAD stent placed in 2021, was on DAPT x 1 year, now on ASA alone. Does not smoke, and does exercise frequently, has hyperlipidemia EKG sinus tachycardia (104 bpm), no ischemic changes Troponin peaked at 105, ECHO w/ preserved EF, no wall motion abnormalities, no valvular disease Lipids with Total chol 214, LDL 126 on atorvastatin 10mg daily HgbA1C normal at 5.3% Cardiology consult appreciated--> had cardiac catheterization which showed: 1. Multivessel coronary artery disease -80-90% proximal OM3 Patent LAD stent. Jailed large septal with 95+% ostial stenosis. Small D2 occluded fills partially via left to left collaterals. 50-60% proximal RPDA 2. Normal intracardiac filling pressure 3. Successful PCI of proximal OM3 with single drug-eluting stent ( 2.25 x 18 mm [place]; postdilated with 2.5 NC). Recommendations: To PCU for continued monitoring Reloaded with clopidogrel 300 mg in [facility]im [facility]ocate Continue dual-antiplatelet therapy for at least 1 year-Rxd Plavix and ASA on discharge Continue statin but changed to Crestor 40mg daily Recommend Cardiac rehab at home Recommend medical management of residual CAD. Will add on additional antianginal therapy for exertional symptoms in form of Imdur 30mg po daily He could not tolerate beta buster due to bradycardia into the 20-30s with sleep F/u with Cardiology once he returns home to [place] (2) Coronary artery disease: as above Plan Bradycardia-had overnight pulse oximetry test here which was normal, but recommend formal sleep study as outpatient. Is active and may just be physiologic bradycardia DVT proph-heparin gtt Dispo-stable for dc to home Discussed care with Cardiology, Dr. Robledo and Dr. Bustillos, on day of dishcarge Notes For Next Care Provider Consider outpt sleep study Needs referral for cardiac rehab Medication Changes From Visit Added Plavix 75mg daily Added Crestor 40mg daily and discontinued atorvastatin Added Imdur 30mg po qAM Admission HPI Per Admitting Provider Patient is a 54-year-old male presenting to ED via EMS after having an onset of chest discomfort/pressure this a.m. around 0630. Upon EMS arrival, patient noted to be tachycardic and hypertensive; ovided with 3 aspirin.ED course: CBC WNL with exception of hematocrit 41.8%; D-dimer 410; CMP chloride 109, BUN 23.1, glucose 114; initial troponin 7.2 with repeat 31.2, pending 3rd of series; CXR- no acute process; EKG without ischemic changes. Provided with aspirin 324 mg in ED. Patient is a 54-year-old male with PMHx CAD, who underwent cardiac catheterization approximate 3 months ago at a hospital in [place], now presenting for chest pressure. Patient states that the chest pressure started at approximately 0630 the day of arrival, awaking him from his sleep. Noted that the pressure was substernal, without radiation. He did have numbness/tingling down his left arm. Reports mild shortness of breath as well, but no coughing, or syncopal events. Overall feels his body is weak at the time of the episode. Reports episode lasted approximately 20 minutes and with complete resolution . States that this has happened on 2 other occasions within the past 3 months. These occurred minutes after completing a workout. It was a sudden onset substernal discomfort, resulting in mild shortness of breath and lasting 15 to 20 minutes per episode. After the first episode, he did follow-up with a shank pinner and a cardiac catheterization was completed; patient is trying to locate these records. Patient resides in [place]; did fly into [place] to visit his son. Denies calf pain/tenderness or swelling. Additionally denies recent fever/chills, palpitations, abdominal pain, N/V/D/C, or recent illness. Currently on aspirin, Plavix, and atorvastatin. Takes OTC multivitamins. Denies illicit drug use, but did have alcohol last evening. Please see Dr. Mena's attestation for adjustments/additions to treatment plan. Discharge Exam Constitutional WD/WN, vitals as above Respiratory normal respiratory effort, lungs clear to auscultation Cardiovascular Rate/Rhythm: regular rhythm and + bradycardic Heart Sounds: no murmur Musculoskeletal right wrist at radial cath site with dressing c/d/i, no hematoma Psychiatric A+Ox3, euthymic affect Discharge Plan Discharge Items Patient Disposition: Home - Self-Care Reason For Visit: CHEST PAIN, NSTEMI Discharge Diagnosis: Non ST-Elevation Myocardial Infarction Unstable angina Condition on Discharge: Good Activity: As commented below Exercise/Sports: Wait until after follow-up appointment Driving/Machine Use: Resume 3 days after discharge Non-emergency contact: Primary Care Provider and Electronic Musical Instrument Repairer Call non-emergency contact if: you have any medication questions, your symptoms worsen, your pain is not controlled and your pain is worsening Follow-up/Referrals: PCP,NO [Primary Care Provider] - (Follow up with your primary care doctor when you return home ) Diet: Heart Healthy Addtl Attending Provider Instructions: You were admitted with chest pain/unstable angina and found to have a severely blocked artery in your heart. A stent was placed and you were started on Plavix in addition to your usual aspirin. Your cholesterol medication was switched to a more potent one called rosuvastatin (Crestor). You will also be started on isosorbide to help with angina/chest pain as you do still have a residual blockage that was not stented. Please follow up with your Electronic Musical Instrument Repairer in [place] once you return home. Because your heart rate dropped quite low while you were sleeping, it is recommended that you have a formal sleep study to assess for obstructive sleep apnea once you return home. ACTIVITY RECOMMENDATIONS: Excess manipulation of the wrist should be avoided for the next 24-48 hours. * No lifting over 2 pounds (approximately a 1/2 gallon of milk) with the utilized arm for 24 hours. * No strenuous activity such as bowling or tennis for 3 days. * Keep the site of the procedure covered with a bandage for 24 hours. *You may shower the day after the procedure. Do not take a tub bath or submerge the puncture site in water for the next 3 days. *Do not operate any motorized equipment for 3 days. SPECIAL CARE INSTRUCTIONS: The site may be slightly bruised and sore following your procedure. Should any of the following occur, contact the DrClifton who performed your procedure. 1. Redness/inflammation, swelling, chills, or fever, or colored drainage at procedure site within 3-7 days after your procedure. 2. Coldness, discoloration, ongoing numbness, severe pain, or swelling. Expect mild tingling of hand and tenderness at the puncture site for up to three days. If this persists beyond three days, or other symptoms develop, notify the Dr. who performed your procedure. BLEEDING: If the procedure site on your wrist begins to bleed, do not panic 1. Place 1 or 2 fingers firmly just slightly above the insertion site to stop the bleeding. You may be able to feel your pulse as you hold pressure. 2. Lift your finger after 5 minutes to see if the bleeding has stopped. 3. Once the bleeding has stopped, gently wipe the wrist area clean with a bandage. * If the bleeding from your wrist does not stop after 10 minutes, or if there is a large amount of bleeding or spurting, call 911 (do not drive yourself to the hospital). SKIN IRRITATION: * You may experience some redness and/or swelling in the area where radiation was administered. If any skin irritation occurs, please contact your family physician. FOLLOW UP VISIT: Keep any scheduled doctor appointments. Home Care: * Take your medications exactly as directed. Don't skip doses. * Remember that recovery after a heart attack takes time. Plan to rest for at lease 4-8 weeks while you recover. Then return to normal activity when your doctor says it's okay. * Ask your doctor about joining a heart rehabilitation program. * Tell your doctor if you are feeling depressed. Feelings of sadness are common after a heart attack, but it is important that you speak to someone if you are feeling overwhelmed by these feelings. * If you are having chest pain, call 911 for an ambulance. Do NOT drive yourself to the hospital. * Ask your family members to learn CPR. * Learn to take your own blood pressure and pulse. Keep a record of your results. Ask your doctor when you should seek emergency medical attention. He or she will tell you which blood pressure reading is dangerous. Lifestyle Changes: * Maintain a healthy weight. Get help to lose any extra pounds. * Cut back on salt. * Limit canned, dried, packaged, and fast foods. * Don't add salt to your food. * Season foods with herbs instead of salt when you cook. * Break the smoking habit. Enroll in a stop-smoking program to improve your chances of success. * Limit fatty foods. * Ask your doctor about having your lipid levels checked regularly. * Build up your activity according to your doctor's recommendation. * Ask your doctor when it's okay to resume sexual activity. * Tell your doctor about any erectile dysfunction (ED) medication you are taking. Some ED medications are not safe if you take certain heart medications. * Try to manage stress. Follow Up: It is important for you to keep your follow up appointments with your medical provider. Addtl Dragline Engineer Provider Instructions: Cardiac catheterization report: Summary of Findings Indication: NSTEMI. History of coronary artery disease post prior stent to proximal LAD 07/2022 Access: 6 Fr slender right radial artery Catheters: [place], diagnostic JL 3.5, EBU 3.5 guide Findings: LM -normal caliber, no significant disease LAD -large vessel proximally, 20 to 30% ostial, mid vessel tapers with widely patent long stent without significant in-stent restenosis, remainder of mid to distal vessel without significant disease and wraps around apex. Jailed large second septal with 95+ percent ostial stenosis. Small D2 occluded, partially fills via left to left collaterals retrograde Circumflex -large caliber, gives off large high OM1 without significant disease. AV groove circumflex without significant disease. Small to medium caliber OM 3 with 80-90% proximal stenosis RCA -dominant, medium caliber, distal luminal irregularities. Small to medium caliber RPDA with 50-60% proximal stenosis. LVEDP -11 IVUS of LAD Left main cannulated with EBU 3.5 guide [place] blue wire placed into distal LAD [place] IVUS catheter placed to rightmid LAD Pullback revealed patent mid LAD stent, appears underexpanded in proximal aspect of stent but well apposed. Mild proximal disease including eccentric ostial LAD calcified mild disease. Left main without significant disease. -- PCI OM 3-- Antithrombotic therapy: Heparin, clopidogrel Procedure: Pre-procedure flow IVETH 3 [place] blue wire redirected from LAD into distal circumflex Geophysical Manager 50 wire navigated across OM 3 stenosis into distal vessel OM 3 lesion predilated with 2.0 compliant balloon Dilated lesion stented with 2.25 x 18 mm [place] NAS Stent post-dilated with 2.5 noncompliant balloon IC vasodilators administered for spasm Post procedure IVETH 3 flow, stent well expanded with minimal residual stenosis and no apparent cardiac complications. Arterial Closure: TR band Summary: 1. Multivessel coronary artery disease -80-90% proximal OM3 Patent LAD stent. Jailed large septal with 95+% ostial stenosis. Small D2 occluded fills partially via left to left collaterals. 50-60% proximal RPDA 2. Normal intracardiac filling pressure 3. Successful PCI of proximal OM3 with single drug-eluting stent ( 2.25 x 18 mm [place]; postdilated with 2.5 NC). Recommendations: To PCU for continued monitoring Reloaded with clopidogrel 300 mg in [facility]im [facility] Continue dual-antiplatelet therapy for at least 1 year Continue statin, and ASCVD risk factor modification Cardiac rehab at home Recommend medical management of residual CAD. Consider additional antianginal therapy for exertional symptoms. Hemodynamics Rest Ao:: 109/64/84 Final Ao: 107/69/90 LV: 111/11 Pending Studies at Discharge: No Stand-Alone Forms: My [facility] [place] [employer] Medications and DC Order Prescriptions: New rosuvastatin 40 mg tablet 40 mg PO DAILY Qty: 30 0RF isosorbide mononitrate 30 mg tablet extended release 24 hr 30 mg PO QAM Qty: 30 0RF Continued aspirin [Baby Aspirin] 81 mg Tablet,Chewable 81 mg PO DAILY clopidogrel [Plavix] 75 mg Tablet 75 mg PO DAILY Qty: 30 0RF Discontinued atorvastatin [Lipitor] 10 mg Tablet 10 mg PO DAILY Discharge Orders: Discharge Order (Routine); Ordered 07/18/24 Ordered By: Erum Amador Admission Data Admit Date/Time: 07/16/24 13:05 Attending Provider: Erum Amador Admit Provider: Hill Mena Primary Care Provider: PCP,NO Other Providers: Radha Bustillos Other Interventions: Discharge Summary Assessment (RN) Last Done: 07/18/24 15:30 Hospital Stay Data Consultations 07/16/24 13:21 Consult Cardiology Routine Procedures Performed Operation Date: 07/18/24 08:30 Actual Procedures p Cineradiography w/Routine Exam - Boni Robledo MD p Cath, Left with Cors and Vent - Boni Robledo MD s Drug Eluting Stent SGl Vessel - Boni Robledo MD s IVUS Coronary Single Vessel - Boni Robledo MD Diagnostic Imagining Performed 07/18/24 08:43 CL Cath Imgs for PACS use only Routine 07/18/24 10:18 CL IVUS Coronary Single Vessel Routine Pending Results Patient Have Any Pending Studies at Discharge: No Discharge Instructions Given to Patient (Per Discharging Provider) You were admitted with chest pain/unstable angina and found to have a severely blocked artery in your heart. A stent was placed and you were started on Plavix in addition to your usual aspirin. Your cholesterol medication was switched to a more potent one called rosuvastatin (Crestor). You will also be started on isosorbide to help with angina/chest pain as you do still have a residual blockage that was not stented. Please follow up with your Electronic Musical Instrument Repairer in [place] once you return home. Because your heart rate dropped quite low while you were sleeping, it is recommended that you have a formal sleep study to assess for obstructive sleep apnea once you return home. ACTIVITY RECOMMENDATIONS: Excess manipulation of the wrist should be avoided for the next 24-48 hours. * No lifting over 2 pounds (approximately a 1/2 gallon of milk) with the utilized arm for 24 hours. * No strenuous activity such as bowling or tennis for 3 days. * Keep the site of the procedure covered with a bandage for 24 hours. *You may shower the day after the procedure. Do not take a tub bath or submerge the puncture site in water for the next 3 days. *Do not operate any motorized equipment for 3 days. SPECIAL CARE INSTRUCTIONS: The site may be slightly bruised and sore following your procedure. Should any of the following occur, contact the Dr. who performed your procedure. 1. Redness/inflammation, swelling, chills, or fever, or colored drainage at procedure site within 3-7 days after your procedure. 2. Coldness, discoloration, ongoing numbness, severe pain, or swelling. Expect mild tingling of hand and tenderness at the puncture site for up to three days. If this persists beyond three days, or other symptoms develop, notify the Dr. who performed your procedure. BLEEDING: If the procedure site on your wrist begins to bleed, do not panic 1. Place 1 or 2 fingers firmly just slightly above the insertion site to stop the bleeding. You may be able to feel your pulse as you hold pressure. 2. Lift your finger after 5 minutes to see if the bleeding has stopped. 3. Once the bleeding has stopped, gently wipe the wrist area clean with a bandage. * If the bleeding from your wrist does not stop after 10 minutes, or if there is a large amount of bleeding or spurting, call 911 (do not drive yourself to the hospital). SKIN IRRITATION: * You may experience some redness and/or swelling in the area where radiation was administered. If any skin irritation occurs, please contact your family physician. FOLLOW UP VISIT: Keep any scheduled doctor appointments. Home Care: * Take your medications exactly as directed. Don't skip doses. * Remember that recovery after a heart attack takes time. Plan to rest for at lease 4-8 weeks while you recover. Then return to normal activity when your doctor says it's okay. * Ask your doctor about joining a heart rehabilitation program. * Tell your doctor if you are feeling depressed. Feelings of sadness are common after a heart attack, but it is important that you speak to someone if you are feeling overwhelmed by these feelings. * If you are having chest pain, call 911 for an ambulance. Do NOT drive yourself to the hospital. * Ask your family members to learn CPR. * Learn to take your own blood pressure and pulse. Keep a record of your results. Ask your doctor when you should seek emergency medical attention. He or she will tell you which blood pressure reading is dangerous. Lifestyle Changes: * Maintain a healthy weight. Get help to lose any extra pounds. * Cut back on salt. * Limit canned, dried, packaged, and fast foods. * Don't add salt to your food. * Season foods with herbs instead of salt when you cook. * Break the smoking habit. Enroll in a stop-smoking program to improve your chances of success. * Limit fatty foods. * Ask your doctor about having your lipid levels checked regularly. * Build up your activity according to your doctor's recommendation. * Ask your doctor when it's okay to resume sexual activity. * Tell your doctor about any erectile dysfunction (ED) medication you are taking. Some ED medications are not safe if you take certain heart medications. * Try to manage stress. Follow Up: It is important for you to keep your follow up appointments with your medical provider. Total Time Total Time Spent Total Time Spent (In Minutes): 35 min Total Time Includes: Examination of the Patient, Discharge Planning, Medication Reconciliation and Communication With Other Providers Coding Level of Care Code 53906 INP/OBS DISCH >30 MIN Diagnoses NSTEMI (non-ST elevated myocardial infarction) I21.4 Coronary artery disease I25.10
[2024-07-18 15:31] VITALS: BP 138/87
[2024-07-18] MEDS ORDERED: METOPROLOL TARTRATE 25 MG TAB PO SCH (21:00)
== END 2024-07-18 16:42 | disposition home or self-care (01) | DRG 322 ==
LOC: ED 07:45 → 4W 13:05 → SUATTDRO 13:05 → 4W 13:49